=== PATIENT | female | born 1990 | race Caucasian/White ===

== ENCOUNTER → 2016-11-04 | Outpatient (CLI) | payer MEDICAID ==
--- NOTE | 2016-11-05 08:17 | US ---
EXAMINATION TYPE: US OB anatomy transabd second trimester DATE OF EXAM: 11/04/2016 2:54 PM COMPARISON: First trimester ultrasound September 02, 2016 HISTORY: Confirm dates, large for gestational age TECHNIQUE: Transabdominal (TA) pelvic ultrasound. EXAM MEASUREMENTS: GESTATIONAL AGE / DATING Dates by First Scan: (19 weeks/6 days) EDC: 03/25/2017 Dates by Current Scan for: (18 weeks/4 days) EDC: 04/03/2017 SURVEY IUP: Single PLACENTA: Anterior PREVIA: Low Lying- Tip of placenta = 1.8 cm away from internal os ROGER: 11.9 cm Normal CERVICAL LENGTH (transabdominal: norm > 3.0cm): 3.9 cm BIOMETRY PRESENTATION: Variable LIE: Transverse lie with head maternal Right BPD: 4.1 cm 18 weeks / 4 days HC: 15.6 cm 18 weeks / 4 days AC: 13.2 cm 18 weeks / 5 days FL: 2.8 cm 18 weeks / 4 days ESTIMATED WEIGHT IN GRAMS: 249 grams ESTIMATED WEIGHT IN LBS/OZS: 0 lbs. 9 oz. WEIGHT PERCENTAGE BASED ON ESTABLISHED DATE: 3.7 % HC/AC: Normal FL/AC: Normal HEART RATE: 144 bpm RHYTHM: Normal ANATOMY SEEN (within normal limits): * Lateral Vent (< 1 cm)= 0.7 cm * Cisterna Magna (< 1.1 cm)-0.4 cm * Nuchal Fold (< 0.6 cm)= 0.2 cm * Cerebellum (varies with age)= 1.9 cm Choroid Plexus (bilateral) Midline Falx Cavus Septi Pellucidi Four Chamber Heart Outflow tracts: LVOT/RVOT Stomach Situs Nose / Lips Diaphragm Kidneys (bilateral) Bladder Cord Insert Three Vessel Cord Longitudinal Spine Transverse Spine Arms (bilateral) Legs (bilateral) ANATOMY SEEN (does not appear within normal limits): ANATOMY NOT SEEN: TECHNOLOGIST IMPRESSION: Anatomy seen appears to be WNL. Bleed seen at tip of placenta= 2.0 x 5.6 x 0.7 cm. Low lying placenta with tip of placenta= 1.8 cm away from internal os. Single live intrauterine gestation is redemonstrated. heart tones are regular and measure 144 b pm. Low-lying placenta is present. Amniotic fluid index is within normal limits. A variable presentat ion to fetus is seen during real-time scanning. biometry measurements are grossly within normal limits though weight is noted under the 5th percentile based on established date. Detailed beryl tomical survey shows no suspicious abnormality during real-time scanning. There is suboptimal visuali zation of kidneys on still images saved. Diaphragm is not well identified on still images saved. Left lower extremity is not well identified on images saved. Cystic area near inferior margin of placenta could reflect small subchorionic hemorrhage, other etiologies are not excluded IMPRESSION: As above
== END | disposition home or self-care (01) ==
LOC: RADUSWWP 13:30
PROVIDERS: ATTEND Obstetrics & Gynecology
DX: O44.42 Low lying placenta NOS or without hemorrhage, second trimester (principal); Z3A.18 18 weeks gestation of pregnancy
CPT/HCPCS: 76811

== ENCOUNTER → 2016-12-10 | Outpatient (CLI) | payer MEDICAID ==
[2016-12-10 13:23] LABS: CHCM 34.2; HCT 36.2 % (34.0-46.0); HDW 2.61; HGB 12.1 gm/dL (11.4-16.0); MCH 31.6 pg (25.0-35.0); MCHC 33.5 g/dL (31.0-37.0); MCV 94.1 fL (80.0-100.0); Mean Platelet Volume 7.2; RBC 3.84 m/uL (3.80-5.40); RDW 12.8 % (11.5-15.5); WBC 10.1 k/uL (3.8-10.6)
== END | disposition home or self-care (01) ==
LOC: LABWHC1 12:04
PROVIDERS: ATTEND Obstetrics & Gynecology
DX: Z34.82 Encounter for supervision of other normal pregnancy, second trimester (principal); Z3A.00 Weeks of gestation of pregnancy not specified
CPT/HCPCS: 36415; 82950; 85027; 86850

== ENCOUNTER → 2017-02-24 | Outpatient (CLI) | payer MEDICAID ==
--- NOTE | 2017-02-25 09:24 | US ---
EXAMINATION TYPE: US OB anatomy transabd DATE OF EXAM: 02/24/2017 2:53 PM COMPARISON: NONE HISTORY: 26-year-old female O36.63X0 Large for dates, third trimester 35 week scan. TECHNIQUE: Transabdominal (TA) FINDINGS: EXAM MEASUREMENTS: GESTATIONAL AGE / DATING Physician Established: Not provided Dates by LMP: unknown Dates by First Scan: (34 weeks/6 days) EDC: 04/01/2017 Dates by Current Scan for: (34 weeks/1 days, 3 days less growth than expected vs 11/04/16) EDC: 04/06/2017 SURVEY IUP: Single PLACENTA: Posterior PREVIA: No previa ROGER: 12.6 cm Normal CERVICAL LENGTH (transabdominal: norm > 3.0cm): 3.5 cm BIOMETRY PRESENTATION: Vertex LIE: Longitudinal BPD: 8.7 cm 35 weeks / 1 days HC: 31.5 cm 35 weeks / 2 days AC: 30.6 cm 34 weeks / 4 days FL: 6.5 cm 33 weeks / 5 days ESTIMATED WEIGHT IN GRAMS: 2446 grams ESTIMATED WEIGHT IN LBS/OZS: 5 lbs. 6 oz. WEIGHT PERCENTAGE BASED ON ESTABLISHED DATE: 17 % (vs 3.7% on 11/04/16) HC/AC: 1.0 Normal FL/AC: 21.3 Normal HEART RATE: 158 bpm RHYTHM: Normal ANATOMY SEEN (within normal limits): Four Chamber Heart Stomach Situs Nose / Lips Diaphragm Kidneys (bilateral) Bladder Three Vessel Cord Longitudinal Spine Transverse Spine ANATOMY NOT SEEN OR SUBOPTIMALLY VISUALIZED:DUE TO AGE AND CROWDING Lateral Vent (< 1 cm) Cisterna Magna (< 1.1 cm) Cerebellum (varies with age) Choroid Plexus (bilateral) Midline Falx Cavus Septi Pellucidi Outflow tracts: LVOT/RVOT Cord Insert Arms (bilateral) Legs (bilateral) IMPRESSION: 1. Single live intrauterine . Established gestational age not provided. Gestational age by eliecer manuel ultrasound biometry is 34 weeks 1 day (3 days less growth than expected from 11/04/2016 which is acceptable). 2. EFW has changed from the 4th percentile to the 17th percentile.
== END | disposition home or self-care (01) ==
LOC: RADUSWWP 13:46
PROVIDERS: ATTEND Obstetrics & Gynecology
DX: O36.63X0 Maternal care for excessive fetal growth, third trimester, not applicable or unspecified (principal); Z3A.34 34 weeks gestation of pregnancy
CPT/HCPCS: 76811

== ENCOUNTER 2017-03-22 05:40 | Inpatient (IN) | payer MEDICAID, BC ==
[2017-03-22] MEDS ORDERED: CARBOPROST TROMETHAMINE 250 MCG/ML 1 ML AMP IM PRN (05:44)
[2017-03-22] MEDS ORDERED: METHYLERGONOVINE 0.2 MG/ML 1 ML AMP IM PRN (05:44)
[2017-03-22] MEDS ORDERED: OXYTOCIN 10 UNIT/ML 1 ML VIAL IM PRN (05:44)
[2017-03-22] MEDS ORDERED: TERBUTALINE 1 MG/ML VIAL SQ PRN (05:44)
[2017-03-22] MEDS ORDERED: LIDOCAINE 1% (PF) 10 MG/ML (30 ML SDV) SQ PRN (05:44)
[2017-03-22] MEDS ORDERED: OXYTOCIN 20 UNITS/1000 ML NS 1,000 ML IV SCH (05:44)
[2017-03-22 06:01] VITALS: RESP 16
[2017-03-22] MEDS: LACTATED RINGERS 1,000 ML IV SCH ×3 (06:01→10:04)
[2017-03-22 06:10] LABS: Basophils % (A) 0 %; CH 32.8; CHCM 36.1; Eosinophils # (A) 0.1 k/uL (0-0.7); Eosinophils % (A) 1 %; HCT 37.6 % (34.0-46.0); Luc # (Auto) 0.33; Luc % (Auto) 3; Lymphocytes # (A) 2.8 k/uL (1.0-4.8); Lymphocytes % (A) 27 %; MCH 31.6 pg (25.0-35.0); MCHC 34.6 g/dL (31.0-37.0); MCV 91.5 fL (80.0-100.0); Mean Platelet Volume 7.2; Monocytes # (A) 0.5 k/uL (0-1.0); Monocytes % (A) 5 %; Neutrophils # (A) 6.5 k/uL (1.3-7.7); Neutrophils % (A) 64 %; RBC 4.11 m/uL (3.80-5.40); WBC 10.3 k/uL (3.8-10.6); WBC (Perox) 10.66
--- NOTE | 2017-03-22 06:20 | P.HPOB ---
History of Present Illness H&P Date: 03/22/17 Chief Complaint: Patient is presenting for elective induction of labor. This patient is a pleasant 26-year-old 2 para 1 female estimated date of confinement 03/25/2017 estimated gestational age 39-4/7 weeks who presents to labor and delivery for requested induction of labor. Patient's care is complicated by a subchorionic bleed which did resolve. She did have a level III ultrasound which showed normal anatomy. Review of Systems Constitutional: Denies chills, Denies fever Eyes: denies blurred vision, denies pain Ears, nose, mouth and throat: Denies headache, Denies sore throat Cardiovascular: Denies chest pain, Denies shortness of breath Respiratory: Denies cough Gastrointestinal: Reports heartburn Genitourinary: Reports Menstruation: Reports amenorrhea Musculoskeletal: Denies myalgias Integumentary: Denies pruritus, Denies rash Neurological: Denies numbness, Denies weakness Psychiatric: Reports mood swings, Reports sadness/tearfulness Endocrine: Denies fatigue, Denies weight change Past Medical History Past Medical History: Asthma Additional Past Medical History / Comment(s): anxiety and depression History of Any Multi-Drug Resistant Organisms: None Reported Past Surgical History: No Surgical Hx Reported Additional Past Surgical History / Comment(s): wisdom teeth Past Anesthesia/Blood Transfusion Reactions: No Reported Reaction Past Psychological History: Anxiety, Depression Additional Psychological History / Comment(s): not currently medicated 03/22 Smoking Status: Never smoker Past Alcohol Use History: None Reported Past Drug Use History: None Reported - Past Family History Mother Family Medical History: No Reported History Medications and Allergies Home Medications Medication Instructions Recorded Confirmed Type Vit,Calc76/Iron/Folic 1 tab PO DAILY 05/15/15 03/22/17 History [Prenatabs Rx Tablet] Allergies Allergy/AdvReac Type Severity Reaction Status Date / Time No Known Allergies Allergy Verified 03/22/17 05:44 Exam - Vital Signs Vital signs: Vital Signs Temp Pulse Resp BP 03/22/17 05:50 96.5 F L 65 16 115/71 Intake and Output 03/21/17 03/21/17 03/22/17 14:59 22:59 06:59 Other: # Voids 1 Weight 74.843 kg Patient Weight 03/22/17 06:59 Weight 74.843 kg - OBG Physical Exam Abdomen: bowel sounds normal, no diffuse tenderness, no bruit present, no guarding noted, no hepatomegaly, no splenomegaly, no mass Vulva: both: normal Vagina: normal moisture, no discharge Cervix: no lesion (Cervix is 2-3 cm dilated 50% effaced and soft.), no discharge Uterus: enlarged (Fundal height is consistent with a term .) Results blood work shows she is O-, rubella immune, RPR is nonreactive, hepatitis B is negative, group B strep was negative, ultrasounds have been normal, Glucola was normal. Patient received RhoGAM on December 27. Result Diagrams: 03/22/17 05:52 Assessment and Plan (1) Elective induction of labor planned Narrative/Plan: This is a pleasant 26-year-old 2 para 1 female 39-4/7 weeks gestation who is admitted to labor and delivery for requested induction of labor. Plan is induction of labor and anticipate normal vaginal delivery. Status: Acute (2) Rh negative status during Status: Chronic
[2017-03-22] MEDS ORDERED: fentaNYL (PF) 50 MCG/ML 5 ML AMP ONE (09:18)
[2017-03-22] MEDS ORDERED: SODIUM CHLORIDE 0.9% 100 ML BAG ONE (09:18)
[2017-03-22] MEDS ORDERED: BUPIVACAINE (PF) 0.25% 30 ML VIAL ONE (09:18)
[2017-03-22] MEDS ORDERED: HYDROCORTISONE 2.5% RECTAL CREAM 30 GM TUBE RECTAL PRN (12:00)
[2017-03-22] MEDS ORDERED: diphenhydrAMINE 50 MG/ML 1 ML VIAL IVP PRN (12:00)
[2017-03-22] MEDS ORDERED: ACETAMINOPHEN TAB 325 MG TAB PO PRN (12:00)
[2017-03-22] MEDS ORDERED: BENZOCAINE SPRAY 57GM TOPICAL PRN (12:00)
[2017-03-22] MEDS ORDERED: Acetaminophen-Codeine 300-30mg TAB PO PRN ×2 (12:00)
[2017-03-22] MEDS ORDERED: IBUPROFEN 600 MG TAB PO PRN (12:00)
[2017-03-22] MEDS ORDERED: BISACODYL 10 MG SUPP RECTAL PRN (12:00)
[2017-03-22] MEDS ORDERED: SIMETHICONE 80 MG CHEWABLE PO PRN (12:00)
[2017-03-22] MEDS ORDERED: WITCH HAZEL 1 EACH MED..PAD TOPICAL PRN (12:00)
[2017-03-22] MEDS ORDERED: diphenhydrAMINE 25 MG CAP PO PRN (12:00)
[2017-03-22] MEDS ORDERED: Rhogam IMMUNE GLOBULIN 1,500 UNIT/1 ML IM ONE (12:00)
[2017-03-22] MEDS ORDERED: ZOLPIDEM 5 MG TAB PO PRN (12:00)
[2017-03-22] MEDS ORDERED: LANOLIN CREAM 5 GM TUBE TOPICAL PRN (12:00)
[2017-03-22] MEDS: SENNOSIDES-DOCUSATE SODIUM 1 EACH TAB PO SCH (13:09)
--- NOTE | 2017-03-22 18:08 | P.PROBDLV ---
Vaginal Delivery Note - . Vaginal Delivery Note: Normal vaginal delivery viable male infant Apgars are 8 and 9 delivery time is 1137 hrs. Please see dictated H&P for intimate details of this patient's admission. Brief summary this is a pleasant 26-year-old 2 para 1 female 39-4/7 weeks gestation who is admitted to labor and delivery for elective induction of labor. Patient is admitted and is approximately 3 cm dilated. She is artificial rupture membranes for clear fluid. Patient's labor is induced with Pitocin per protocol. Patient's labor progresses normally and she does receive an epidural for pain control. Patient quickly gets to complete pushes the head to the perineum. Posterior perineum is supported we have controlled delivery of the 's head over the intact perineum. Mouth and nares are bulb suctioned. There is a tight nuchal cord which is doubly clamped and cut reduced. With gentle downward traction we then have deliver the anterior and posterior shoulder and rest this infant's body. This is a vigorous viable male Apgars are 8 and 9 delivery time was 1137 hrs. After delivery of the infant the infant is late on the mother's abdomen. The placenta spontaneously delivered intact. Cord blood is obtained for Rh status. Inspection of the perineum shows a second-degree perineal laceration is somewhat jagged especially over on the patient's left side. This is repaired as best as possible using a 3-0 Vicryl in running and interrupted fashion. Good reapproximation is noted. Estimated blood loss is about 100 mL. There are no complications. All counts are correct. Infant and mother stable delivery room.
[2017-03-23] MEDS: SENNOSIDES-DOCUSATE SODIUM 1 EACH TAB PO SCH ×2 (01:31→09:03)
--- NOTE | 2017-03-23 03:51 | P.PNOBGVD ---
Subjective - Subjective Patient reports: Reports appetite normal, Reports voiding normally, Reports pain well controlled, Reports ambulating normally : doing well Objective - Latest Vital Signs Latest vital signs: Vital Signs Temp Pulse Resp BP BP 03/23/17 00:00 98.2 F 56 L 16 107/72 03/22/17 19:45 98.2 F 64 16 118/72 03/22/17 16:00 98.2 F 69 16 113/68 03/22/17 13:46 67 16 140/62 03/22/17 13:16 64 16 119/56 03/22/17 12:46 63 16 146/68 03/22/17 12:31 73 147/76 03/22/17 12:16 59 L 16 138/72 03/22/17 12:01 62 16 136/69 03/22/17 11:46 71 16 114/55 03/22/17 05:50 96.5 F L 65 16 115/71 Intake and Output 03/22/17 03/22/17 03/23/17 14:59 22:59 06:59 Intake Total 2516.5 400 Balance 2516.5 400 Intake: Intake, IV Titration 2516.5 400 Amount Lactated Ringers 1,000 ml 2000 400 @ 125 mls/hr IV .Q8H GUILLE Rx#:[id number] Oxytocin 20 Units/1000 ml 516.5 Ns 1,000 ml @ 1 MILLIUNIT/MIN 3 mls/hr IV .Q24H GUILLE Rx#:[id number] Other: # Voids 1 2 1 - Exam Lungs: bilateral: normal Chest: Normal S1, Normal S2 Extremities: Present: normal Abdomen: Present: normal appearance, soft Uterus: Present: normal, firm Assessment and Plan (1) Elective induction of labor planned Narrative/Plan: Post day #1. Patient is resting without complaints. She is considering going home later today. Vital signs are stable she is afebrile. Uterus is firm nontender she's having normal lochia. My impression is this is a normal course. Plan is to continue routine care discharge home later today. Current Visit: No Status: Acute Code(s): KRJ1756 - SNOMED Code(s): 120776816 (2) Rh negative status during Current Visit: Yes Status: Chronic Code(s): O09.899 - SUPERVISION OF OTHER HIGH RISK PREGNANCIES, UNSP TRIMESTER SNOMED Code(s): 155234090
--- NOTE | 2017-03-23 03:53 | P.DS ---
Providers Date of admission: 03/22/17 05:40 Expected date of discharge: 03/23/17 Attending physician: Salvatore Chou Primary care physician: Salvatore Chou - Discharge Diagnosis(es) (1) Elective induction of labor planned Current Visit: No Status: Acute (2) Rh negative status during Current Visit: Yes Status: Chronic Hospital Course: Please see dictated H&P for intimate details of this patient's admission. Brief summary is a pleasant 26-year-old 2 para 1 female 39-4/7 weeks gestation who is admitted to labor and delivery for elective induction of labor. Patient is admitted has uncomplicated induction of labor quickly goes on have a vaginal delivery viable male . Please see dictated delivery note. day 1 patient's felt stable for discharge home follow up with me in 6 weeks. Procedures: Normal vaginal delivery. Patient Condition at Discharge: Good Plan - Discharge Summary New Discharge Prescriptions: New Acetaminophen-Codeine 300-30mg [Tylenol w/codeine #3] 1 - 2 each PO Q4HR PRN #30 tab PRN Reason: Mild Pain exceeding Tylenol Ibuprofen [Motrin] 600 mg PO Q6HR PRN #40 tab PRN Reason: Mild Pain Or Fever >= 100.5 No Action Vit,Calc76/Iron/Folic [Prenatabs Rx Tablet] 1 tab PO DAILY Discharge Medication List Vit,Calc76/Iron/Folic [Prenatabs Rx Tablet] 1 tab PO DAILY 05/15/15 [ History] Acetaminophen-Codeine 300-30mg [Tylenol w/codeine #3] 1 - 2 each PO Q4HR PRN # 30 tab 03/23/17 [Rx] Ibuprofen [Motrin] 600 mg PO Q6HR PRN #40 tab 03/23/17 [Rx] Follow up Appointment(s)/Referral(s): Salvatore Chou MD [Primary Care Provider] - 05/05/17 9:15 am Patient Instructions/Handouts: Vaginal Delivery (DC) Activity/Diet/Wound Care/Special Instructions: No intercourse or anything per vagina for 6 weeks. Please call for any fever, chills, excessive vaginal bleeding, and/or abdominal pain. Discharge Disposition: HOME SELF-CARE
[2017-03-23 09:59] VITALS: BP 124/88; PULSE 63; TEMP 97.9
== END 2017-03-23 13:20 | disposition home or self-care (01) | DRG 775 ==
LOC: 4FBP 05:40
PROVIDERS: ADMIT Obstetrics & Gynecology; ATTEND Obstetrics & Gynecology
PROC: 10E0XZZ Delivery of Products of Conception, External Approach (ICD-10-PCS; principal; 2017-03-22)
PROC: 0KQM0ZZ Repair Perineum Muscle, Open Approach (ICD-10-PCS; 2017-03-22)
PROC: 3E033VJ Introduction of Other Hormone into Peripheral Vein, Percutaneous Approach (ICD-10-PCS; 2017-03-22)
PROC: 10907ZC Drainage of Amniotic Fluid, Therapeutic from Products of Conception, Via Natural or Artificial Opening (ICD-10-PCS; 2017-03-22)
DX: O69.1XX0 Labor and delivery complicated by cord around neck, with compression, not applicable or unspecified (principal); O99.344 Other mental disorders complicating childbirth; F32.9 Major depressive disorder, single episode, unspecified; Z37.0 Single live birth; F41.9 Anxiety disorder, unspecified; J45.909 Unspecified asthma, uncomplicated; O99.52 Diseases of the respiratory system complicating childbirth; O70.1 Second degree perineal laceration during delivery; O26.893 Other specified pregnancy related conditions, third trimester; Z3A.39 39 weeks gestation of pregnancy; Z67.91 Unspecified blood type, Rh negative
CPT/HCPCS: 85025; 85461; 88307

== ENCOUNTER 2019-07-02 08:40 | Inpatient (IN) | payer BC ==
[2019-07-02] MEDS ORDERED: OXYTOCIN 10 UNIT/ML 1 ML VIAL IM PRN (09:02)
[2019-07-02] MEDS ORDERED: CARBOPROST TROMETHAMINE 250 MCG/ML 1 ML AMP IM PRN (09:02)
[2019-07-02] MEDS ORDERED: TERBUTALINE 1 MG/ML VIAL SQ PRN (09:02)
[2019-07-02] MEDS ORDERED: METHYLERGONOVINE 0.2 MG/ML 1 ML AMP IM PRN (09:02)
[2019-07-02] MEDS ORDERED: LIDOCAINE 0.5% (PF) 5 MG/ML (50 ML SDV) SQ PRN (09:02)
[2019-07-02] MEDS ORDERED: OXYTOCIN 30 UNITS/500 ML NS 30 UNIT in SALINE 1 500ML.BAG IV SCH (09:15)
[2019-07-02] MEDS: LACTATED RINGERS 1,000 ML IV SCH ×2 (09:30→10:05)
[2019-07-02 09:47] VITALS: BMI 29.1
[2019-07-02 09:49] LABS: Basophils % (A) 0 %; Eosinophils # (A) 0.1 k/uL (0-0.7); Eosinophils % (A) 1 %; HCT 37.7 % (34.0-46.0); HGB 13.2 gm/dL (11.4-16.0); Lymphocytes # (A) 2.8 k/uL (1.0-4.8); Lymphocytes % (A) 24 %; MCV 88.5 fL (80.0-100.0); Monocytes # (A) 0.7 k/uL (0-1.0); Monocytes % (A) 6 %; Neutrophils % (A) 68 %; Platelet Count 292 k/uL (150-450); RBC 4.26 m/uL (3.80-5.40); RDW 12.8 % (11.5-15.5); WBC 11.8 k/uL (3.8-10.6)
[2019-07-02] MEDS ORDERED: SODIUM CHLORIDE 0.9% 100 ML BAG ONE (09:56)
[2019-07-02] MEDS ORDERED: fentaNYL (PF) 50 MCG/ML 5 ML AMP ONE (09:56)
[2019-07-02] MEDS ORDERED: ROPIVACAINE 5MG/ML 20ML VIAL ONE (09:56)
[2019-07-02] MEDS ORDERED: Rhogam IMMUNE GLOBULIN 1,500 UNIT/1 ML IM ONE (12:27)
[2019-07-02] MEDS ORDERED: diphenhydrAMINE 25 MG CAP PO PRN (12:27)
[2019-07-02] MEDS ORDERED: ACETAMINOPHEN TAB 325 MG TAB PO PRN (12:27)
[2019-07-02] MEDS ORDERED: WITCH HAZEL 1 EACH MED..PAD TOPICAL PRN (12:27)
[2019-07-02] MEDS ORDERED: BENZOCAINE/MENTHOL SPRAY 1 GM/SPRAY AEROSOL TOPICAL PRN (12:27)
[2019-07-02] MEDS ORDERED: diphenhydrAMINE 50 MG/ML 1 ML VIAL IVP PRN ×2 (12:27)
[2019-07-02] MEDS ORDERED: SIMETHICONE 80 MG CHEWABLE PO PRN (12:27)
[2019-07-02] MEDS ORDERED: HYDROCORTISONE 2.5% RECTAL CREAM 30 GM TUBE RECTAL PRN (12:27)
[2019-07-02] MEDS ORDERED: diphenhydrAMINE 50 MG CAP PO PRN (12:27)
[2019-07-02] MEDS ORDERED: LANOLIN CREAM 5 GM TUBE TOPICAL PRN (12:27)
[2019-07-02] MEDS ORDERED: ZOLPIDEM 5 MG TAB PO PRN (12:27)
[2019-07-02] MEDS ORDERED: OXYTOCIN 20 UNITS/1000 ML NS 1,000 ML IV SCH (12:30)
--- NOTE | 2019-07-02 12:31 | P.HPOB ---
History of Present Illness H&P Date: 07/02/19 Chief Complaint: SROM, labor 29-year-old presents at 39 weeks and 5 days after her water broke at 8 AM. She was grossly ruptured with clear fluid. She presented to triage she was dilated to 5-1/2 cm, 90% effaced, -2 station. She is cale every 2-3 minutes. heart tones 130 with moderate variability and reactive. Review of Systems All systems: negative Constitutional: Denies chills, Denies fever Eyes: denies blurred vision, denies pain Ears, nose, mouth and throat: Denies headache, Denies sore throat Cardiovascular: Denies chest pain, Denies shortness of breath Respiratory: Denies cough Gastrointestinal: Denies abdominal pain, Denies diarrhea, Denies nausea, Denies vomiting Genitourinary: Denies dysuria, Denies hematuria Musculoskeletal: Denies myalgias Integumentary: Denies pruritus, Denies rash Neurological: Denies numbness, Denies weakness Psychiatric: Denies anxiety, Denies depression Endocrine: Denies fatigue, Denies weight change Past Medical History Past Medical History: Asthma Additional Past Medical History / Comment(s): anxiety and depression. Obstetric history: She's had 2 previous vaginal deliveries. Her care with this with Dr. Chou. Blood type is O-, antibodies negative, rubella immune, hepatitis B negative, RPR nonreactive, GBS negative. History of Any Multi-Drug Resistant Organisms: None Reported Past Surgical History: No Surgical Hx Reported Additional Past Surgical History / Comment(s): wisdom teeth Past Anesthesia/Blood Transfusion Reactions: No Reported Reaction Past Psychological History: Anxiety, Depression Additional Psychological History / Comment(s): using Buspar Smoking Status: Never smoker Past Alcohol Use History: None Reported Past Drug Use History: None Reported - Past Family History Mother Family Medical History: No Reported History Medications and Allergies Home Medications Medication Instructions Recorded Confirmed Type busPIRone HCl [Buspar] 15 mg PO DAILY 07/02/19 07/02/19 History Allergies Allergy/AdvReac Type Severity Reaction Status Date / Time No Known Allergies Allergy Verified 08/06/17 12:13 Exam Osteopathic Statement: *. No significant issues noted on an osteopathic structural exam other than those noted in the History and Physical/Consult. Vital Signs Temp Pulse Resp BP Pulse Ox 07/02/19 08:53 97.1 F L 70 18 130/68 100 Intake and Output 07/01/19 07/02/19 07/02/19 22:59 06:59 14:59 Other: Weight 79.379 kg Heart: Regular rate and rhythm Lungs: Clear to auscultation bilaterally Abdomen: Soft, nontender Extremities: Negative Homans sign Results Result Diagrams: 07/02/19 09:20 Abnormal Lab Results - Last 24 Hours (Table) 07/02/19 Range/Units 09:20 WBC 11.8 H (3.8-10.6) k/uL Neutrophils # 8.0 H (1.3-7.7) k/uL Assessment and Plan (1) Normal labor Current Visit: Yes Status: Acute Code(s): O80 - ENCOUNTER FOR FULL-TERM UNCOMPLICATED DELIVERY; Z37.9 - OUTCOME OF DELIVERY, UNSPECIFIED SNOMED Code(s): 49776605 (2) Spontaneous rupture of membranes Current Visit: Yes Status: Acute Code(s): [id number] - SNOMED Code(s): 861960918 Plan: 1. Expectant management 2. Anticipate normal vaginal delivery
--- NOTE | 2019-07-02 12:34 | P.PROBDLV ---
Vaginal Delivery Note - . Vaginal Delivery Note: 29-year-old presents at 39 weeks and 5 days after her water broke at 8 AM. She was grossly ruptured with clear fluid. She presented to triage she was dilated to 5-1/2 cm, 90% effaced, -2 station. She is cale every 2-3 minutes. heart tones 130 with moderate variability and reactive. Patient did get an epidural. Her cervix was completely dilated at 1207. She pushed, delivered a viable female over intact perineum under epidural anesthesia at 1214. Head delivered OA, anterior shoulder delivered gentle downward guidance followed by posterior shoulder and rest of body. Nose and mouth bulb suctioned, cord clamped and cut, placed mother's abdomen. Apgars 8, 9, weight 7 pounds 1.6 ounces. Placenta delivered spontaneously, intact with three-vessel cord at 1218. Vagina, cervix, and perineum were inspected. First- degree midline laceration was repaired with 3-0 Vicryl. Estimated blood loss 200 mL. Mother and baby in stable condition.
[2019-07-02] MEDS: SENNOSIDES-DOCUSATE SODIUM 1 EACH TAB PO SCH (20:21)
[2019-07-02 22:29] VITALS: RESP 16
[2019-07-02] MEDS: IBUPROFEN 600 MG TAB PO PRN (22:53)
--- NOTE | 2019-07-03 06:23 | P.PNOBGVD ---
Subjective - Subjective Patient reports: Reports appetite normal, Reports voiding normally, Reports pain well controlled, Reports ambulating normally : doing well Objective - Latest Vital Signs Latest vital signs: Vital Signs Temp Pulse Resp BP Pulse Ox 07/03/19 00:00 98.3 F 58 L 16 109/67 07/02/19 20:00 97.8 F 81 16 125/72 07/02/19 15:00 98.9 F 67 18 125/72 07/02/19 14:30 64 111/56 07/02/19 14:00 98.9 F 67 18 111/63 07/02/19 13:30 98.9 F 59 L 18 117/70 07/02/19 13:15 66 116/68 07/02/19 13:00 98.4 F 55 L 18 117/70 07/02/19 12:45 98.4 F 66 18 117/82 07/02/19 12:30 97.4 F L 61 18 120/76 07/02/19 08:53 97.1 F L 70 18 130/68 100 Intake and Output 07/02/19 07/02/19 07/03/19 14:59 22:59 06:59 Other: # Voids 1 1 Weight 79.379 kg - Exam Lungs: bilateral: normal Chest: Normal S1, Normal S2 Extremities: Present: normal Abdomen: Present: normal appearance, soft Uterus: Present: normal, firm - Labs Labs: Abnormal Lab Results - Last 24 Hours (Table) 07/02/19 Range/Units 09:20 WBC 11.8 H (3.8-10.6) k/uL Neutrophils # 8.0 H (1.3-7.7) k/uL Assessment and Plan Assessment: day #1. Patient is resting without complaints and wishes to go home. Vital signs are stable she is afebrile. Uterus is firm nontender she's having normal lochia. My impression this is a normal course. Plan is to continue routine care discharge home later today. (1) Normal labor Current Visit: Yes Status: Acute Code(s): O80 - ENCOUNTER FOR FULL-TERM UNCOMPLICATED DELIVERY; Z37.9 - OUTCOME OF DELIVERY, UNSPECIFIED SNOMED Code(s): 96548836
--- NOTE | 2019-07-03 06:28 | P.DS ---
Providers Date of admission: 07/02/19 08:59 Expected date of discharge: 07/03/19 Attending physician: Salvatore Chou Primary care physician: Stated None - Discharge Diagnosis(es) (1) Normal labor Current Visit: Yes Status: Acute Hospital Course: Please see dictated H&P for intimate details of this patient's admission. Brief summary this pleasant 29-year-old 3 para 2 female 39-4/7 weeks gestation admitted to labor and delivery with active labor. Patient quickly goes on have a vaginal delivery viable female infant. Please see dictated delivery note. day 1 patient is without complaints she wishes to go home. Patient's felt to be stable for discharge home follow up with me in 6 weeks. Patient Condition at Discharge: Good Plan - Discharge Summary New Discharge Prescriptions: New Ibuprofen [Motrin] 600 mg PO Q6HR PRN #30 tab PRN Reason: Mild Pain Or Fever >= 100.5 No Action busPIRone HCl [Buspar] 15 mg PO DAILY Discharge Medication List busPIRone HCl [Buspar] 15 mg PO DAILY 07/02/19 [History] Ibuprofen [Motrin] 600 mg PO Q6HR PRN #30 tab 07/03/19 [Rx] Follow up Appointment(s)/Referral(s): Salvatore Chou MD [STAFF PHYSICIAN] - 6 Weeks Patient Instructions/Handouts: Vaginal Delivery (DC) Activity/Diet/Wound Care/Special Instructions: No intercourse or anything per vagina for 6 weeks. Please call if any fever, chills, excessive vaginal bleeding, and/or abdominal pain. Discharge Disposition: HOME SELF-CARE
[2019-07-03 06:59] LABS: Basophils % (A) 0 %; Eosinophils % (A) 0 %; HCT 32.2 % (34.0-46.0); HGB 11.4 gm/dL (11.4-16.0); Lymphocytes # (A) 2.5 k/uL (1.0-4.8); Lymphocytes % (A) 24 %; MCH 31.9 pg (25.0-35.0); MCHC 35.3 g/dL (31.0-37.0); MCV 90.4 fL (80.0-100.0); Mean Platelet Volume 6.8; Monocytes # (A) 0.5 k/uL (0-1.0); Monocytes % (A) 5 %; Neutrophils # (A) 7.1 k/uL (1.3-7.7); Neutrophils % (A) 69 %; Platelet Count 218 k/uL (150-450); RBC 3.56 m/uL (3.80-5.40); RDW 12.9 % (11.5-15.5); WBC 10.4 k/uL (3.8-10.6)
[2019-07-03] MEDS: SENNOSIDES-DOCUSATE SODIUM 1 EACH TAB PO SCH (07:58)
[2019-07-03] MEDS: IBUPROFEN 600 MG TAB PO PRN (07:58)
[2019-07-03 08:13] VITALS: BP 121/75; PULSE 67; TEMP 98.7
== END 2019-07-03 13:45 | disposition home or self-care (01) | DRG 807 ==
LOC: FBPOP 08:40 → 4FBP 08:59
PROVIDERS: ADMIT Obstetrics & Gynecology; ATTEND Obstetrics & Gynecology
PROC: 10E0XZZ Delivery of Products of Conception, External Approach (ICD-10-PCS; principal; 2019-07-02)
PROC: 00HU33Z Insertion of Infusion Device into Spinal Canal, Percutaneous Approach (ICD-10-PCS; 2019-07-02)
PROC: 3E0R3BZ Introduction of Anesthetic Agent into Spinal Canal, Percutaneous Approach (ICD-10-PCS; 2019-07-02)
PROC: 0HQ9XZZ Repair Perineum Skin, External Approach (ICD-10-PCS; 2019-07-02)
DX: O99.344 Other mental disorders complicating childbirth (principal); Z37.0 Single live birth; O99.52 Diseases of the respiratory system complicating childbirth; J45.909 Unspecified asthma, uncomplicated; O26.893 Other specified pregnancy related conditions, third trimester; F41.9 Anxiety disorder, unspecified; F32.9 Major depressive disorder, single episode, unspecified; Z67.41 Type O blood, Rh negative; Z3A.39 39 weeks gestation of pregnancy; Z79.899 Other long term (current) drug therapy
CPT/HCPCS: 84112; 85025; 85461; 86850; 86870; 86880; 86900; 86901; 99213

== ENCOUNTER → 2020-07-03 | Outpatient (CLI) | payer BC ==
--- NOTE | 2020-07-03 10:13 | US ---
EXAMINATION TYPE: Transabdominal DATE OF EXAM: 07/03/2020 9:53 AM COMPARISON: NONE CLINICAL HISTORY: O03.9 SPONTANEOUS AB. Pt states passing large piece of tissue and possible gestatio nal sac on 06-30-20/ Pt states she was approx 8 weeks along/ rule out POC EXAM PERFORMED: Transabdominal (TA) EXAM MEASUREMENTS: GESTATIONAL AGE / DATING Physician Established: Not yet established Dates by LMP: (8 weeks/5 days) EDC: 02/07/2021 Dates by First Scan: No prior Dates by Current Scan for: No IUP seen MATERNAL ANATOMY Uterus: 6.7 x 3.5 x 5.5 cm Right Ovary: 2.7 x 1.7 x 2.0 cm Left Ovary: 2.1 x 1.7 x 1.4 cm Post CDS / Adnexa: wnl Presence of free fluid: No Presence of corpus luteal cyst: Right Ovary= 1.8 x 1.3 x 1.0 cm GESTATION / SURVEY IUP: No IUP seen at this time, Endo thickness= 1.2 cm, no evidence of retained products Date of LMP: 05/03/2020 Beta HcG (if available): Not available at this time No evidence of IUP Results called to Dr. Chou at time of exam IMPRESSION: No evidence for intrauterine at this time. Correlate spontaneous .
== END | disposition home or self-care (01) ==
LOC: RADUSWWP 09:35
PROVIDERS: ATTEND Obstetrics & Gynecology
DX: O03.9 Complete or unspecified spontaneous abortion without complication (principal)
CPT/HCPCS: 76801; 84702

== ENCOUNTER 2021-07-18 18:32 | Outpatient (CLI) | payer BC ==
[2021-07-18 18:42] VITALS: BP 122/80
[2021-07-18 22:11] VITALS: PULSE 77; RESP 16; TEMP 97.5
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
== END 2021-07-18 22:00 | disposition home or self-care (01) ==
LOC: FBPOP 18:32
PROVIDERS: ATTEND Obstetrics & Gynecology
DX: O26.93 Pregnancy related conditions, unspecified, third trimester (principal); Z3A.37 37 weeks gestation of pregnancy
CPT/HCPCS: 59025; 99213

== ENCOUNTER 2021-08-02 21:44 | Inpatient (IN) | payer BC ==
[2021-08-02] MEDS ORDERED: TERBUTALINE 1 MG/ML VIAL SQ PRN (22:01)
[2021-08-02] MEDS ORDERED: OXYTOCIN 10 UNIT/ML 1 ML VIAL IM PRN (22:01)
[2021-08-02] MEDS ORDERED: OXYTOCIN 30 UNITS/500 ML NS 30 UNIT in SALINE 1 500ML.BAG IV SCH (22:01)
[2021-08-02] MEDS ORDERED: LIDOCAINE 0.5% (PF) 5 MG/ML (50 ML SDV) SQ PRN (22:01)
[2021-08-02] MEDS ORDERED: METHYLERGONOVINE 0.2 MG/ML 1 ML AMP IM PRN (22:01)
[2021-08-02] MEDS ORDERED: CARBOPROST TROMETHAMINE 250 MCG/ML 1 ML AMP IM PRN (22:01)
[2021-08-02] MEDS: LACTATED RINGERS 1,000 ML IV SCH (22:03)
[2021-08-02 22:14] LABS: Basophils % (A) 0 %; Eosinophils # (A) 0.1 k/uL (0-0.7); Eosinophils % (A) 1 %; HCT 38.5 % (34.0-46.0); HGB 13.3 gm/dL (11.4-16.0); Lymphocytes # (A) 2.6 k/uL (1.0-4.8); Lymphocytes % (A) 23 %; MCH 32.4 pg (25.0-35.0); MCHC 34.4 g/dL (31.0-37.0); Mean Platelet Volume 8.1; Monocytes # (A) 0.7 k/uL (0-1.0); Monocytes % (A) 6 %; Neutrophils # (A) 7.7 k/uL (1.3-7.7); Neutrophils % (A) 68 %; Platelet Count 259 k/uL (150-450); RBC 4.09 m/uL (3.80-5.40); RDW 12.2 % (11.5-15.5); WBC 11.4 k/uL (3.8-10.6)
[2021-08-02] MEDS ORDERED: BUTORPHANOL 1 MG/ML 1 ML VIAL IV PRN (22:34)
[2021-08-03] MEDS ORDERED: fentaNYL (PF) 50 MCG/ML 5 ML AMP ONE (00:35)
[2021-08-03] MEDS ORDERED: SODIUM CHLORIDE 0.9% 100 ML BAG ONE (00:35)
[2021-08-03] MEDS ORDERED: ROPIVACAINE 5MG/ML 20ML VIAL ONE (00:35)
[2021-08-03] MEDS: LACTATED RINGERS 1,000 ML IV SCH (01:08)
[2021-08-03] MEDS ORDERED: LANOLIN CREAM 5 GM TUBE TOPICAL PRN (02:46)
[2021-08-03] MEDS ORDERED: BENZOCAINE/MENTHOL SPRAY 1 GM/SPRAY AEROSOL TOPICAL PRN (02:46)
[2021-08-03] MEDS ORDERED: ACETAMINOPHEN TAB 325 MG TAB PO PRN (02:46)
[2021-08-03] MEDS ORDERED: SIMETHICONE 80 MG CHEWABLE PO PRN (02:46)
[2021-08-03] MEDS ORDERED: diphenhydrAMINE 25 MG CAP PO PRN (02:46)
[2021-08-03] MEDS ORDERED: diphenhydrAMINE 50 MG CAP PO PRN (02:46)
[2021-08-03] MEDS ORDERED: ZOLPIDEM 5 MG TAB PO PRN (02:46)
[2021-08-03] MEDS ORDERED: Rhogam IMMUNE GLOBULIN 1,500 UNIT/1 ML IM ONE (02:46)
[2021-08-03] MEDS ORDERED: HYDROCORTISONE 2.5% RECTAL CREAM 30 GM TUBE RECTAL PRN (02:46)
[2021-08-03] MEDS ORDERED: diphenhydrAMINE 50 MG/ML 1 ML VIAL IVP PRN ×2 (02:46)
--- NOTE | 2021-08-03 02:50 | P.HPOB ---
History of Present Illness H&P Date: 08/03/21 Chief Complaint: active labor 31-year-old presents 38 weeks 6 days and labor. Her cervix was 4 cm dilated, 80% effaced, and -1 station. She is cale every 2-6 minutes. heart tones 140 with moderate variability and reactive. Review of Systems All systems: negative Constitutional: Denies chills, Denies fever Eyes: denies blurred vision, denies pain Ears, nose, mouth and throat: Denies headache, Denies sore throat Cardiovascular: Denies chest pain, Denies shortness of breath Respiratory: Denies cough Gastrointestinal: Denies abdominal pain, Denies diarrhea, Denies nausea, Denies vomiting Genitourinary: Denies dysuria, Denies hematuria Musculoskeletal: Denies myalgias Integumentary: Denies pruritus, Denies rash Neurological: Denies numbness, Denies weakness Psychiatric: Denies anxiety, Denies depression Endocrine: Denies fatigue, Denies weight change Past Medical History Past Medical History: Asthma Additional Past Medical History / Comment(s): Pt states she uses breathing treatments as needed. Also reports hx of anxiety and depression. Obstetric history: She's had 3 previous vaginal deliveries. Her care is with Dr. Chou. Blood type is O-, antibodies negative, rubella immune, hepatitis B negative, RPR nonreactive, GBS negative. History of Any Multi-Drug Resistant Organisms: None Reported Past Surgical History: No Surgical Hx Reported Additional Past Surgical History / Comment(s): wisdom teeth Past Anesthesia/Blood Transfusion Reactions: No Reported Reaction Past Psychological History: Anxiety, Depression Smoking Status: Never smoker Past Alcohol Use History: None Reported Past Drug Use History: None Reported - Past Family History Mother Family Medical History: No Reported History Medications and Allergies Home Medications Medication Instructions Recorded Confirmed Type Pnv,Calcium 72/Iron/Folic Acid 1 tab PO DAILY 07/18/21 08/02/21 History [ Plus Tablet] Allergies Allergy/AdvReac Type Severity Reaction Status Date / Time No Known Allergies Allergy Verified 08/02/21 22:00 Exam Osteopathic Statement: *. No significant issues noted on an osteopathic structural exam other than those noted in the History and Physical/Consult. Vital Signs Temp Pulse Resp BP Pulse Ox 08/02/21 22:00 97.6 F 61 18 126/80 98 Intake and Output 08/02/21 08/02/21 08/03/21 14:59 22:59 06:59 Other: # Voids 1 Weight 79.379 kg Heart: Regular rate and rhythm Lungs: Clear to auscultation bilaterally Abdomen: Soft, nontender Extremities: Negative Homans sign Results Result Diagrams: 08/02/21 22:05 Abnormal Lab Results - Last 24 Hours (Table) 08/02/21 Range/Units 22:05 WBC 11.4 H (3.8-10.6) k/uL Assessment and Plan (1) Normal labor Current Visit: No Status: Acute Code(s): O80 - ENCOUNTER FOR FULL-TERM UNCOMPLICATED DELIVERY; Z37.9 - OUTCOME OF DELIVERY, UNSPECIFIED SNOMED Code(s): 83009384 Plan: 1. Admit to family place 2. Expectant management 3. Anticipate normal vaginal delivery
--- NOTE | 2021-08-03 02:52 | P.PROBDLV ---
Vaginal Delivery Note - . Vaginal Delivery Note: 31-year-old presented at 38 weeks and 6 days in active labor. Her cervix was 4 centers dilated, 80% effaced, and -1 station. She is cale every 2- 6 minutes. heart tones 140 with moderate variability and reactive. When she was very uncomfortable she did get an epidural and her water spontaneously ruptured soon after at 0101, clear fluid noted. She progressed to complete at 2:30 AM, she pushed and delivered a viable male infant over intact perineum under epidural anesthesia at 2:34 AM. Head delivered OA, nuchal cord 1 easily reduced, anterior shoulder delivered gentle downward guidance followed by posterior shoulder and rest of body. Nose and mouth bulb suctioned, cord clamped and cut, placed mother's abdomen. Apgars 8, 9, weight 6 pounds 11.2 ounces. Placenta delivered spontaneously, intact with three-vessel cord at 2:37 AM. Vagina, cervix, perineum inspected. First-degree midline laceration was repaired with 3-0 Vicryl. Estimated blood loss 100 mL. Mother and baby in stable condition.
[2021-08-03] MEDS ORDERED: OXYTOCIN 30 UNITS/500 ML NS 30 UNIT in SALINE 1 500ML.BAG IV SCH (03:00)
[2021-08-03] MEDS: SERTRALINE 50 MG TAB PO SCH (08:31)
[2021-08-03] MEDS: SENNOSIDES-DOCUSATE SODIUM 1 EACH TAB PO SCH ×2 (08:31→19:42)
[2021-08-03] MEDS ORDERED: SERTRALINE 25 MG TAB PO SCH (09:00)
[2021-08-03] MEDS: IBUPROFEN 600 MG TAB PO PRN ×2 (16:40→23:39)
[2021-08-03] MEDS: PRENATAL VIT-IRON-FOLIC ACID 1 EACH CAP PO SCH (17:27)
[2021-08-03 23:45] VITALS: TEMP 97.9
--- NOTE | 2021-08-04 05:51 | P.PNOBGVD ---
Subjective - Subjective Patient reports: Reports appetite normal, Reports voiding normally, Reports pain well controlled, Reports ambulating normally [place]: doing well Objective - Latest Vital Signs Latest vital signs: Vital Signs Temp Pulse Resp BP Pulse Ox 08/03/21 23:42 97.9 F 64 18 131/85 98 08/03/21 16:00 98.2 F 51 L 16 138/78 08/03/21 11:57 98.2 F 77 16 125/77 99 08/03/21 08:00 98.4 F 79 16 127/81 Intake and Output 08/03/21 08/03/21 08/04/21 14:59 22:59 06:59 Other: # Voids 2 1 2 - Exam Lungs: bilateral: normal Chest: Normal S1, Normal S2 Extremities: Present: normal Abdomen: Present: normal appearance, soft Uterus: Present: normal, firm Assessment and Plan Assessment: Post day #1. Patient is resting without complaints and wishes to go ho me. Vital signs are stable and she is afebrile. Uterus is firm nontender and she is having normal lochia. Impression this is a normal course. Plan is to continue routine care discharge home later today. (1) Normal labor Current Visit: No Status: Acute Code(s): O80 - ENCOUNTER FOR FULL-TERM UNCOMPLICATED DELIVERY; Z37.9 - OUTCOME OF DELIVERY, UNSPECIFIED SNOMED Code(s): 28296270
--- NOTE | 2021-08-04 05:56 | P.DS ---
Providers Date of admission: 08/02/21 21:44 Expected date of discharge: 08/04/21 Attending physician: Salvatore Chou Primary care physician: Stated None - Discharge Diagnosis(es) (1) Normal labor Current Visit: No Status: Acute Hospital Course: Please see dictated H&P and delivery note per Dr. Casey. In brief summary this is a pleasant 31-year-old 5 para 3 female 39-0/7 weeks gestation admitted to labor and delivery in active labor. Patient is admitted to labor and delivery quickly goes on have a vaginal delivery viable male infant. Please see dictated delivery note. day #1 patient's felt be stable for discharge home follow up with me in 6 weeks. Procedures: Normal spontaneous vaginal delivery Patient Condition at Discharge: Good Plan - Discharge Summary New Discharge Prescriptions: New Sertraline [Zoloft] 50 mg PO DAILY #30 tab Ibuprofen [Motrin] 600 mg PO Q6HR PRN #30 tab PRN Reason: Mild Pain (Scale 1 To 3) No Action Pnv,Calcium 72/Iron/Folic Acid [ Plus Tablet] 1 tab PO DAILY Discharge Medication List Pnv,Calcium 72/Iron/Folic Acid [ Plus Tablet] 1 tab PO DAILY 07/18/21 [History] Ibuprofen [Motrin] 600 mg PO Q6HR PRN #30 tab 08/04/21 [Rx] Sertraline [Zoloft] 50 mg PO DAILY #30 tab 08/04/21 [Rx] Follow up Appointment(s)/Referral(s): Salvatore Chou MD [STAFF PHYSICIAN] - 09/15/21 11:15 am Patient Instructions/Handouts: Vaginal Delivery (DC) Activity/Diet/Wound Care/Special Instructions: No intercourse or anything per vagina for 6 weeks. Please call if any fever, chills, excessive vaginal bleeding, and/or abdominal pain. Discharge Disposition: HOME SELF-CARE
[2021-08-04 06:38] LABS: Basophils # (A) 0.1 k/uL (0-0.2); Basophils % (A) 1 %; Eosinophils # (A) 0.1 k/uL (0-0.7); Eosinophils % (A) 1 %; HCT 36.7 % (34.0-46.0); HGB 12.4 gm/dL (11.4-16.0); Lymphocytes # (A) 3.5 k/uL (1.0-4.8); Lymphocytes % (A) 32 %; MCH 32.3 pg (25.0-35.0); MCHC 33.8 g/dL (31.0-37.0); MCV 95.6 fL (80.0-100.0); Monocytes # (A) 0.6 k/uL (0-1.0); Monocytes % (A) 5 %; Neutrophils # (A) 6.4 k/uL (1.3-7.7); Neutrophils % (A) 59 %; Platelet Count 229 k/uL (150-450); RBC 3.84 m/uL (3.80-5.40); RDW 12.5 % (11.5-15.5)
[2021-08-04] MEDS: IBUPROFEN 600 MG TAB PO PRN (07:59)
[2021-08-04] MEDS: SERTRALINE 50 MG TAB PO SCH (08:00)
[2021-08-04] MEDS: PRENATAL VIT-IRON-FOLIC ACID 1 EACH CAP PO SCH (08:00)
[2021-08-04 09:05] VITALS: BP 124/81; PULSE 60; RESP 16
[2021-08-04] MEDS: SENNOSIDES-DOCUSATE SODIUM 1 EACH TAB PO SCH (09:05)
== END 2021-08-04 10:20 | disposition home or self-care (01) | DRG 807 ==
LOC: 4FBP 21:44
PROVIDERS: ADMIT Obstetrics & Gynecology; ATTEND Obstetrics & Gynecology
PROC: 10E0XZZ Delivery of Products of Conception, External Approach (ICD-10-PCS; principal; 2021-08-03)
PROC: 3E0R3BZ Introduction of Anesthetic Agent into Spinal Canal, Percutaneous Approach (ICD-10-PCS; principal; 2021-08-03)
PROC: 0HQ9XZZ Repair Perineum Skin, External Approach (ICD-10-PCS; principal; 2021-08-03)
PROC: 00HU33Z Insertion of Infusion Device into Spinal Canal, Percutaneous Approach (ICD-10-PCS; principal; 2021-08-03)
PROC: 3E0234Z Introduction of Serum, Toxoid and Vaccine into Muscle, Percutaneous Approach (ICD-10-PCS; 2021-08-03)
DX: O69.81X0 Labor and delivery complicated by cord around neck, without compression, not applicable or unspecified (principal); Z37.0 Single live birth; J45.909 Unspecified asthma, uncomplicated; Z3A.38 38 weeks gestation of pregnancy; O26.893 Other specified pregnancy related conditions, third trimester; Z67.41 Type O blood, Rh negative; O70.0 First degree perineal laceration during delivery; O99.52 Diseases of the respiratory system complicating childbirth; Z79.899 Other long term (current) drug therapy; Z86.59 Personal history of other mental and behavioral disorders
CPT/HCPCS: 85025; 85461; 86850; 86900; 86901

== ENCOUNTER → 2021-08-02 | Outpatient (CLI) | payer BC ==
[2021-08-03 07:39] VITALS: BP 126/81; PULSE 84; RESP 16; TEMP 97.7
== END ==
LOC: FBPOP 20:40
PROVIDERS: ATTEND Obstetrics & Gynecology
DX: Z53.9 Procedure and treatment not carried out, unspecified reason (principal)
CPT/HCPCS: 59025; 84112; 99213